=== PATIENT | male | born 1965 | race Two or more races ===

== ENCOUNTER 2021-10-16 17:53 | Emergency (ER) | payer SELFPAY ==
[~2021-10-16] VITALS: Ht 185.4 cm; Wt 111.3 kg
[2021-10-16 18:03] VITALS: BP 138/87
--- NOTE | 2021-10-16 20:44 | PHYS DOC ---
Past Medical History Past Surgical History: No Surgical History (JOHNNY COLLINS APRN) General Adult EDM: Chief Complaint: UPPER EXTREMITY INJURY HPI: HPI: Patient is a 55-year-old male who presents to the emergency department for left elbow pain. Patient reports that this afternoon he fell off of a 3 foot tractor trailer tire falling onto his left elbow. He rates his pain 8 out of 10. He was seen at an urgent care and had an x-ray performed and they told him that he had a left elbow fracture and needed to go to the emergency department for a cast. I informed patient that we do not perform casting in the emergency department but we can splinted. Patient denies hitting his head, loss of consciousness, blood thinner use, decree sensation in his extremity. (JOHNNY COLLINS APRN) Review of Systems: Review of Systems: Constitutional: negative unless reported in HPI Eyes: negative unless reported in HPI HENT: negative unless reported in HPI Respiratory: negative unless reported in HPI Cardiovascular: negative unless reported in HPI GI: negative unless reported in HPI : negative unless reported in HPI Musculoskeletal: negative unless reported in HPI Integument: negative unless reported in HPI Neurologic: negative unless reported in HPI Endocrine: negative unless reported in HPI Lymphatic: negative unless reported in HPI Psychiatric: negative unless reported in HPI (JOHNNY COLLINS APRN) Heart Score: C/O Chest Pain: N/A Risk Factors: Risk Factors: DM, Current or recent (<one month) smoker, HTN, HLP, family history of CAD, obesity. Risk Scores: Score 0 - 3: 2.5% MACE over next 6 weeks - Discharge Home Score 4 - 6: 20.3% MACE over next 6 weeks - Admit for Clinical Observation Score 7 - 10: 72.7% MACE over next 6 weeks - Early Invasive Strategies (JOHNNY COLLINS APRN) Physical Exam: PE: Constitutional: Well developed, well nourished, no acute distress, non-toxic appearance. [] HENT: Normocephalic, atraumatic, bilateral external ears normal, oropharynx moist, no oral exudates, nose normal. [] Eyes: PERRL, EOMI, conjunctiva normal, no discharge. [] Neck: Normal range of motion, no stridor Cardiovascular: Normal peripheral perfusion Lungs & Thorax: No work of breathing, no tachypnea Abdomen: Soft and flat Skin: Warm, dry, no erythema, no rash. [] Back: Normal range of motion Extremities: No tenderness, no cyanosis, no clubbing, ROM intact, no edema. Left upper extremity: Swelling noted to left forearm and elbow, full flexion, limited extension due to pain, neuro intact, no obvious deformity, no crepitus Neurologic: Alert and oriented X 3, normal motor function, normal sensory function, no focal deficits noted. [] Psychologic: Affect normal, judgement normal, mood normal. [] (JOHNNY COLLINS APRN) Current Patient Data: Vital Signs: Vital Signs Date Time Temp Pulse Resp B/P (MAP) Pulse Ox O2 Delivery O2 Flow Rate FiO2 10/16/21 18:03 98.3 67 22 138/87 (104) 97 Room Air 98.3 (JOHNNY COLLINS APRN) EKG: EKG: [] (JOHNNY COLLINS APRN) Radiology/Procedures: Radiology/Procedures: []PROCEDURE: ELBOW LEFT 3V Left elbow x-rays 3 views HISTORY: Fall, left elbow pain. FINDINGS: Abnormal elevation of the fat pads consistent with the presence of a joint effusion. There is acute traumatic fracture of the radial head with slight impaction noted on the lateral and oblique views. No significant offset of the articular cortex evident. The ulna and humerus are intact. No dislocation. IMPRESSION: Acute traumatic fracture of the radial head. Electronically signed by: Jennifer Zapata MD (10/16/2021 9:20 PM) [facility] [place] DICTATED and SIGNED BY: JENNIFER ZAPATA MD DATE: 10/16/21 [id number] 0 (JOHNNY COLLINS APRN) Course & Med Decision Making: Course & Med Decision Making Pertinent Labs and Imaging studies reviewed. (See chart for details) [] Presents to the emergency department for left elbow pain. Patient did present to the emergency department with a disc with the x-ray from urgent care. This was loaded into our system but it was repeated for radiologist over read as an obvious fracture was not seen. X-ray was performed that showed acute radial head fracture. Patient was placed in a posterior long-arm splint and was given a sling. Patient is neurovascularly intact pre and post splint placement. Patient's pain treated and he will be discharged home with pain medication. Advised to follow-up with orthopedic doctor. I discussed with patient all findings and diagnostic testing as well as the need to follow-up with PCP for further evaluation and treatment or return to the ER if any new or worsening symptoms. Strict return precautions were also discussed at length. Patient voiced understanding and agreement with the plan. Patient is hemodynamically stable at the time of disposition. [ (JOHNNY COLLINS APRN) Course & Med Decision Making Patients Care and treatment plan provided by ER mid-level Practitioner. I was available for consult. Patient's chart reviewed. (KELSEY FONTAINE I DO) Dragon Disclaimer: Dragon Disclaimer: This electronic medical record was generated, in whole or in part, using a voice recognition dictation system. (JOHNNY COLLINS APRN) Departure Departure Impression: Primary Impression: Radial head fracture Qualified Codes: S52.125A - Nondisplaced fracture of head of left radius, initial encounter for closed fracture Disposition: HOME / SELF CARE / HOMELESS Condition: GOOD Referrals: KRISTINE SESAY II, MD Patient Instructions: Radial Fracture Additional Instructions: You were seen in the ER today for a fracture or broken bone. You had a splint placed to help with pain and healing. You will need to follow-up with the orthopedic doctors in the orthopedic clinic as soon as possible. Please see attached information regarding follow-up physician. You should perform range of motion exercises to prevent stiffness of your joints. Splints help with the pain and can promote healing but immobility can cause chronic pain over time. Please refer to these attached instructions regarding range of motion exercises. Keep the splint clean and dry avoid getting it wet. If the splint gets wet you will need to have it replaced. You should use ice and elevation to help with the swelling and pain. For the first 24 hours apply ice 20 minutes on 20 minutes off 4 times per day. Ensure that ice is in a plastic bag as to not get the splint wet. You may take NSAID medications ( ibuprofen, naproxen) to help with the pain. For severe pain you can take the pain medication as prescribed to you. This medication is hydrocodone and Tylenol and a combination tablet. Do not take any additional Tylenol with this medication. This medication may cause sedation so do not take when you need to be alert, driving a vehicle or with alcohol. Please return to the emergency department if you develop any of the following symptoms: Increasing pain that does not improve with treatments. New numbness or tingling Warmth, redness, skin discoloration, skin breakdown, drainage from under splint or near splinted area. Increasing inability to move your extremity or digits. Foul odor coming from splint Fevers or chills Nausea or vomiting Persistent lightheadedness We would be happy to see you for any other concerning symptoms regarding your splinted extremity. Scripts Hydrocodone Bit/Acetaminophen (HYDROCODONE-APAP 5-325 ) 1 Tab Tablet 1 TAB PO PRN Q6HRS PRN for PAIN for 2 Days, #8 TAB 0 Refills Prov: JOHNNY COLLINS APRN 10/16/21 JOHNNY COLLINS APRN Oct 16, 2021 20:44 KELSEY FONTAINE I DO Oct 17, 2021 03:10
--- NOTE | 2021-10-16 21:22 | RAD ---
Left elbow x-rays 3 views HISTORY: Fall, left elbow pain. FINDINGS: Abnormal elevation of the fat pads consistent with the presence of a joint effusion. There is acute traumatic fracture of the radial head with slight impaction noted on the lateral and oblique views. No significant offset of the articular cortex evident. The ulna and humerus are intact. No di slocation. IMPRESSION: Acute traumatic fracture of the radial head. Electronically signed by: Waldemar Zapata MD (10/16/2021 9:20 PM) [facility]
[2021-10-16] MEDS ORDERED: HYDROcodone/APAP 5/325MG 1 TAB TABLET PO ONE (21:45)
[2021-10-16] MEDS ORDERED: HYDR-2761 PO (21:47)
== END 2021-10-16 21:33 | disposition home or self-care (01) ==
LOC: ER 17:53
DX: S52.125A Nondisplaced fracture of head of left radius, initial encounter for closed fracture (principal); W20.8XXA Other cause of strike by thrown, projected or falling object, initial encounter; Y93.89 Activity, other specified; Y92.89 Other specified places as the place of occurrence of the external cause; Y99.2 Volunteer activity
CPT/HCPCS: 29105; 29125; 73080; 99283